=== PATIENT | male | born 1990 | race Caucasian/White ===

== ENCOUNTER 2017-03-27 20:18 | Emergency (ER) | payer SELFPAY ==
[2017-03-27] MEDS ORDERED: Ondansetron ODT 4 MG TAB ONE (22:06)
[2017-03-27] MEDS ORDERED: Ibuprofen 200 MG TAB ONE (22:06)
== END 2017-03-27 22:10 | disposition home or self-care (01) ==
LOC: ERS 20:18
DX: J10.1 Influenza due to other identified influenza virus with other respiratory manifestations (principal)
CPT/HCPCS: 87804; 99283; Q0162

== ENCOUNTER 2017-04-04 11:43 | Emergency (ER) | payer SELFPAY ==
--- NOTE | 2017-04-04 12:29 | RAD ---
TWO VIEW CHEST: INDICATIONS: Cough. History of flu. COMPARISON: No prior comparison. FINDINGS: There is an area of consolidation at the left lung base. The lungs are mildly hyperinflated with gen eralized mild interstitial prominence. The cardiac silhouette is normal in size. No effusion or pne umothorax is visualized. IMPRESSION: Left basilar pneumonia. POS: [facility]
[2017-04-04] MEDS ORDERED: Ondansetron HCl/PF 4 MG/2 ML Vial ONE (12:55)
[2017-04-04] MEDS ORDERED: Azithromycin 250 MG TAB ONE (13:09)
[2017-04-04] MEDS ORDERED: Ketorolac Tromethamine 30 MG/ML VIAL ONE (14:45)
== END 2017-04-04 15:05 | disposition home or self-care (01) ==
LOC: ERS 11:43
DX: J11.00 Influenza due to unidentified influenza virus with unspecified type of pneumonia (principal)
CPT/HCPCS: 71046; 96361; 96374; 96375; J0696; J1885; J2405

== ENCOUNTER 2017-06-29 12:01 | Emergency (ER) | payer SELFPAY | END 2017-06-29 13:20 | disposition home or self-care (01) | LOC: ERS 12:01 | DX: R05 Cough (principal); R11.2 Nausea with vomiting, unspecified | CPT/HCPCS: 87804; 99284 ==